=== PATIENT | male | born 1995 | race Caucasian/White ===

== ENCOUNTER 2018-09-18 22:40 | Inpatient (IN) | payer MEDICAID ==
[2018-09-19] MEDS: LIDOCAINE 1% (MPF) 30 ML INJ (00:45)
[2018-09-19] MEDS: BUPIVACAINE 0.25%/EPI (SDV) 30 ML INJ (00:45)
[2018-09-19] MEDS: SOD CHLORIDE 0.9% 1,000 ML IV ×3 (06:35→21:07)
[2018-09-19] MEDS: morphine 4 MG/ML VIAL IV ×2 (06:35→07:37)
[2018-09-19] MEDS: ONDANSETRON 4 MG INJ IV ×2 (06:35→19:45)
[2018-09-19 07:10] LABS: ADD MAN DIFF? NO
[2018-09-19 07:14] LABS: WHITE BLOOD COUNT 23.8 10^3/ul (4.8-10.8)
[2018-09-19 07:14] LABS: ABNORMAL IP MESSAGE 1; BASOPHIL # 0.1 10^3/ul (0.0-0.1); BASOPHILS % 0.3 % (0.0-2.0); HEMATOCRIT 46.4 % (42.0-52.0); LYMPHOCYTES % 8.4 % (15.0-51.0); MEAN CORPUSCULAR HEMOGLOBIN 31.7 pg (29.0-33.0); MEAN CORPUSCULAR HGB CONC 34.5 g/dl (32.0-37.0); MEAN CORPUSCULAR VOLUME 92.1 fl (82.0-101.0); MEAN PLATELET VOLUME 10.2 fl (7.4-10.4); MONOCYTE # 2.4 10^3/ul (0.3-0.9); NEUTROPHIL # 19.2 10^3/ul (1.6-7.5); NEUTROPHILS % 80.4 % (39.0-77.0); PLATELET COUNT 320 10^3/UL (140-415); POSITIVE DIFF @See below; RED BLOOD COUNT 5.04 10^6/ul (4.70-6.10); RED CELL DISTRIBUTION WIDTH 12.1 % (11.5-14.5)
[2018-09-19 07:29] LABS: ADD UMIC YES; UR ASCORBIC ACID NEGATIVE (NEGATIVE); UR BILIRUBIN (Dip) NEGATIVE (NEGATIVE); UR BLOOD (Dip) 2+ mg/dL (NEGATIVE); UR CLARITY SLIGHTLY CLOUDY (CLEAR); UR COLOR AMBER (YELLOW); UR GLUCOSE (Dip) NEGATIVE (NEGATIVE); UR KETONES (Dip) TRACE mg/dL (NEGATIVE); UR LEUKOCYTE ESTERASE (Dip) NEGATIVE Leu/ul (NEGATIVE); UR MUCUS MODERATE /HPF (NONE SEEN); UR NITRITE (Dip) NEGATIVE (NEGATIVE); UR RBC 92 /HPF (0-5); UR SPECIFIC GRAVITY (Dip) 1.028 (1.003-1.030); UR TOTAL PROTEIN (Dip) 1+ mg/dl (NEGATIVE); UR UROBILINOGEN (Dip) 2+ mg/dL (NEGATIVE); UR WBC 3 /HPF (0-5)
[2018-09-19] MEDS: PIPER-TAZO 3.375 GM IV (PMX) 100 ML IVPB ×3 (07:37→17:57)
[2018-09-19 07:42] LABS: ALANINE AMINOTRANSFERASE 40 IU/L (13-69); ALBUMIN/GLOBULIN RATIO 1.28; ALKALINE PHOSPHATASE 78 IU/L (42-121); ANION GAP 13 (5-13); ASPARTATE AMINO TRANSFERASE 29 IU/L (15-46); BILIRUBIN,INDIRECT 1.4 mg/dl (0-1.1); BILIRUBIN,TOTAL 1.4 mg/dl (0.2-1.3); BLOOD UREA NITROGEN 13 mg/dl (7-20); CALCIUM 10.2 mg/dl (8.4-10.2); CARBON DIOXIDE 28 mmol/L (21-31); CHLORIDE 102 mmol/L (97-110); CREATININE 0.69 mg/dl (0.61-1.24); Estimated GFR > 60 mL/min (>60); GLUCOSE 147 mg/dl (70-220); LIPASE 325 U/L (23-300); POTASSIUM 3.8 mmol/L (3.5-5.1); SODIUM 143 mmol/L (135-144); TOTAL PROTEIN 8.9 g/dl (6.1-8.1)
[2018-09-19] MEDS: SOD CHLORIDE 0.9% 100 ML (07:42)
[2018-09-19] MEDS: IOHEXOL 300MG/ML 150 ML BTL (07:43)
[2018-09-19] MEDS ORDERED: hydrALAzine 20 MG INJ IV (11:30)
[2018-09-19] MEDS ORDERED: NACL 0.9% 3 ML SYG IV (11:30)
[2018-09-19] MEDS ORDERED: LORAZEPAM 2 MG INJ IV (11:30)
[2018-09-19] MEDS ORDERED: ALBUTEROL/IPRATROPIUM (NEB) 3 ML AMP HHN (11:30)
[2018-09-19] MEDS ORDERED: NITROGLYCERIN (SL) 0.4 MG TAB SL (11:30)
[2018-09-19 11:56] LABS: FREE T4 (FREE THYROXINE) 0.99 ng/dl (0.79-2.35)
[2018-09-19] MEDS: morphine 2 MG INJ IV ×2 (12:47→17:19)
[2018-09-19 14:06] LABS: INR 1.13; PROTIME 14.6 Sec (11.9-14.9); PT RATIO 1.1
[2018-09-19] MEDS: ACETAMINOPHEN 325 MG TAB PO (14:49)
[2018-09-19] MEDS: HYDROCODONE/APAP (5/325) TAB PO (15:56)
[2018-09-19] MEDS: HEPARIN 5,000 UNIT/1 ML VIAL SC (20:11)
[2018-09-19] MEDS: ACETAMINOPHEN 1000MG/100ML IV 100 ML IVPB (21:19)
[2018-09-19] MEDS ORDERED: MEPERIDINE 25 MG INJ IV (23:00)
[2018-09-19] MEDS ORDERED: ONDANSETRON 4 MG INJ IV (23:00)
[2018-09-19] MEDS ORDERED: ALBUTEROL 0.083% (NEB) 2.5 MG/3 ML AMP HHN (23:00)
[2018-09-19] MEDS ORDERED: METOCLOPRAMIDE 10 MG INJ IV (23:00)
[2018-09-19] MEDS ORDERED: DIPHENHYDRAMINE 50 MG INJ IV (23:00)
[2018-09-19] MEDS ORDERED: HYDROmorphONE 1 MG/5 ML IV SYRINGE IV ×2 (23:00)
[2018-09-19] MEDS ORDERED: FENTAnyl 50 MCG/ML VIAL IV ×3 (23:00)
[2018-09-19] MEDS ORDERED: FENTAnyl 50 MCG/ML VIAL (23:11)
[2018-09-19] MEDS ORDERED: ROPIVACAINE 0.5 % 30 ML VIAL (23:11)
[2018-09-20] MEDS ORDERED: LIDOCAINE 100 MG SYRINGE (00:10)
[2018-09-20] MEDS ORDERED: FENTAnyl 50 MCG/ML VIAL (00:10)
[2018-09-20] MEDS ORDERED: SUGAMMADEX SODIUM 200 MG/2 ML VIAL IV (00:10)
[2018-09-20] MEDS ORDERED: ROCURONIUM 50 MG INJ (00:10)
[2018-09-20] MEDS ORDERED: PROPOFOL 20 ML (00:10)
[2018-09-20] MEDS ORDERED: SUCCINYLCHOLINE CHLORIDE 100 MG/5 ML SYG IV (00:10)
[2018-09-20] MEDS: HYDROmorphONE 1 MG/5 ML IV SYRINGE IV (01:19)
[2018-09-20] MEDS: ONDANSETRON 4 MG INJ IV (01:19)
[2018-09-20] MEDS: PIPER-TAZO 3.375 GM IV (PMX) 100 ML IVPB ×6 (01:22→23:52)
[2018-09-20] MEDS: SOD CHLORIDE 0.9% 1,000 ML IV ×4 (01:58→23:52)
[2018-09-20] MEDS: morphine 2 MG INJ IV ×5 (04:07→20:07)
[2018-09-20] MEDS: PANTOPRAZOLE (EC) 40 MG TAB PO (06:05)
[2018-09-20 07:07] LABS: HEMATOCRIT 41.7 % (42.0-52.0); MEAN CORPUSCULAR HEMOGLOBIN 31.9 pg (29.0-33.0); MEAN CORPUSCULAR HGB CONC 33.6 g/dl (32.0-37.0); MEAN PLATELET VOLUME 10.4 fl (7.4-10.4); PLATELET COUNT 193 10^3/UL (140-415); POSITIVE DIFF @See below; RED BLOOD COUNT 4.39 10^6/ul (4.70-6.10); RED CELL DISTRIBUTION WIDTH 12.6 % (11.5-14.5)
[2018-09-20 07:07] LABS: WHITE BLOOD COUNT 11.6 10^3/ul (4.8-10.8)
[2018-09-20 07:14] LABS: ADD MAN DIFF? YES
[2018-09-20 07:29] LABS: HEMOGLOBIN A1C 5.3 % (0-5.9)
[2018-09-20 07:33] LABS: ANION GAP 11 (5-13); BLOOD UREA NITROGEN 17 mg/dl (7-20); CALCIUM 8.8 mg/dl (8.4-10.2); CARBON DIOXIDE 29 mmol/L (21-31); CHLORIDE 101 mmol/L (97-110); CHOL/HDL RATIO 2.6 RATIO; CHOLESTEROL 112 mg/dl (100-200); CREATININE 0.81 mg/dl (0.61-1.24); Estimated GFR > 60 mL/min (>60); GLUCOSE 138 mg/dl (70-220); HDL CHOLESTEROL 43 mg/dl (30-63); LDL CHOLESTEROL,CALCULATED 60 mg/dl; MAGNESIUM 2.1 mg/dl (1.7-2.5); PHOSPHORUS 3.4 mg/dl (2.5-4.9); POTASSIUM 4.1 mmol/L (3.5-5.1); SODIUM 141 mmol/L (135-144); TRIGLYCERIDES 45 mg/dl (0-149)
[2018-09-20 07:41] LABS: ALANINE AMINOTRANSFERASE 32 IU/L (13-69); ALBUMIN 3.5 g/dl (3.3-4.9); ALKALINE PHOSPHATASE 45 IU/L (42-121); ANION GAP 7 (5-13); ASPARTATE AMINO TRANSFERASE 27 IU/L (15-46); BILIRUBIN,INDIRECT 1.7 mg/dl (0-1.1); BILIRUBIN,TOTAL 1.7 mg/dl (0.2-1.3); BLOOD UREA NITROGEN 17 mg/dl (7-20); CARBON DIOXIDE 30 mmol/L (21-31); CHLORIDE 104 mmol/L (97-110); Estimated GFR > 60 mL/min (>60); GLUCOSE 141 mg/dl (70-220); POTASSIUM 4.3 mmol/L (3.5-5.1); SODIUM 141 mmol/L (135-144); TOTAL PROTEIN 6.4 g/dl (6.1-8.1)
[2018-09-20 07:59] LABS: THYROID STIMULATING HORMONE 0.348 MIU/L (0.465-4.680)
[2018-09-20] MEDS: HEPARIN 5,000 UNIT/1 ML VIAL SC ×2 (08:03→20:13)
[2018-09-20 08:06] LABS: BAND NEUTROPHILS #M 4.1 10^3/ul (0.0-0.6); BAND NEUTROPHILS % (M) 36 % (0-4); LYMPHOCYTES #M 0.4 10^3/ul (0.8-2.9); LYMPHOCYTES % (M) 4 % (15-51); MONOCYTE #M 0.5 10^3/ul (0.3-0.9); MONOCYTES % (M) 5 % (0-11); PLATELET ESTIMATE NORMAL; POIKILOCYTOSIS 1+ (0-0); POLYCHROMASIA 1+ (0-0); REACTIVE LYMPHOCYTES #M 0.3 10^3/ul (0.0-0.0); REACTIVE LYMPHOCYTES% (M) 3 % (0-0); SEG NEUT #M 6.5 10^3/ul (1.6-7.5); SEGMENTED NEUTROPHILS (M) % 52 % (39-77); SMUDGE%M 1 % (0-0)
[2018-09-20] MEDS: HYDROCODONE/APAP (5/325) TAB PO ×2 (09:26→18:03)
[2018-09-21] MEDS: morphine 2 MG INJ IV ×3 (00:08→08:01)
[2018-09-21] MEDS: HYDROCODONE/APAP (5/325) TAB PO (03:00)
[2018-09-21] MEDS: PIPER-TAZO 3.375 GM IV (PMX) 100 ML IVPB ×3 (05:25→17:39)
[2018-09-21] MEDS: PANTOPRAZOLE (EC) 40 MG TAB PO (05:25)
[2018-09-21 06:01] LABS: ADD MAN DIFF? NO
[2018-09-21 06:05] LABS: BASOPHILS % 0.2 % (0.0-2.0); HEMATOCRIT 39.1 % (42.0-52.0); HEMOGLOBIN 13.1 g/dl (14.0-18.0); LYMPHOCYTES # 1.4 10^3/ul (0.8-2.9); LYMPHOCYTES % 11.4 % (15.0-51.0); MEAN CORPUSCULAR HEMOGLOBIN 31.6 pg (29.0-33.0); MEAN CORPUSCULAR HGB CONC 33.5 g/dl (32.0-37.0); MEAN CORPUSCULAR VOLUME 94.4 fl (82.0-101.0); MEAN PLATELET VOLUME 10.1 fl (7.4-10.4); MONOCYTE # 0.9 10^3/ul (0.3-0.9); MONOCYTES % 7.5 % (0.0-11.0); NEUTROPHIL # 9.6 10^3/ul (1.6-7.5); NEUTROPHILS % 80.5 % (39.0-77.0); PLATELET COUNT 208 10^3/UL (140-415); RED BLOOD COUNT 4.14 10^6/ul (4.70-6.10); RED CELL DISTRIBUTION WIDTH 12.3 % (11.5-14.5)
[2018-09-21 06:32] LABS: ANION GAP 4 (5-13); BLOOD UREA NITROGEN 15 mg/dl (7-20); CALCIUM 8.8 mg/dl (8.4-10.2); CARBON DIOXIDE 29 mmol/L (21-31); CHLORIDE 105 mmol/L (97-110); CREATININE 0.66 mg/dl (0.61-1.24); Estimated GFR > 60 mL/min (>60); GLUCOSE 115 mg/dl (70-220); POTASSIUM 3.7 mmol/L (3.5-5.1); SODIUM 138 mmol/L (135-144)
[2018-09-21] MEDS: ONDANSETRON 4 MG INJ IV (07:56)
[2018-09-21] MEDS: HEPARIN 5,000 UNIT/1 ML VIAL SC ×2 (09:19→20:43)
[2018-09-21] MEDS: MAGNESIUM HYDROXIDE 30ML CUP PO (09:22)
[2018-09-21] MEDS: morphine 4 MG/ML VIAL IV ×4 (11:37→20:43)
[2018-09-21] MEDS: SOD CHLORIDE 0.9% 1,000 ML IV ×2 (11:37→22:50)
[2018-09-21] MEDS: DOCUSATE SODIUM 100 MG CAP PO (17:37)
[2018-09-21] MEDS: ACETAMINOPHEN 325 MG TAB PO (22:58)
[2018-09-22] MEDS: PIPER-TAZO 3.375 GM IV (PMX) 100 ML IVPB ×4 (00:04→18:14)
[2018-09-22] MEDS: morphine 4 MG/ML VIAL IV ×7 (00:04→22:12)
[2018-09-22] MEDS: MAGNESIUM HYDROXIDE 30ML CUP PO (05:33)
[2018-09-22 05:52] LABS: ADD MAN DIFF? NO
[2018-09-22 05:58] LABS: WHITE BLOOD COUNT 11.8 10^3/ul (4.8-10.8)
[2018-09-22 05:58] LABS: BASOPHILS % 0.3 % (0.0-2.0); EOSINOPHILS % 0.3 % (0.0-7.0); HEMATOCRIT 37.5 % (42.0-52.0); HEMOGLOBIN 12.8 g/dl (14.0-18.0); LYMPHOCYTES # 2.1 10^3/ul (0.8-2.9); MEAN CORPUSCULAR HEMOGLOBIN 31.8 pg (29.0-33.0); MEAN CORPUSCULAR HGB CONC 34.1 g/dl (32.0-37.0); MEAN CORPUSCULAR VOLUME 93.3 fl (82.0-101.0); MEAN PLATELET VOLUME 9.9 fl (7.4-10.4); MONOCYTE # 1.1 10^3/ul (0.3-0.9); NEUTROPHIL # 8.5 10^3/ul (1.6-7.5); NEUTROPHILS % 71.9 % (39.0-77.0); PLATELET COUNT 250 10^3/UL (140-415); RED BLOOD COUNT 4.02 10^6/ul (4.70-6.10); RED CELL DISTRIBUTION WIDTH 11.8 % (11.5-14.5)
[2018-09-22] MEDS: PANTOPRAZOLE (EC) 40 MG TAB PO (06:11)
[2018-09-22 06:43] LABS: ANION GAP 7 (5-13); BLOOD UREA NITROGEN 12 mg/dl (7-20); CALCIUM 8.5 mg/dl (8.4-10.2); CARBON DIOXIDE 29 mmol/L (21-31); CHLORIDE 101 mmol/L (97-110); CREATININE 0.67 mg/dl (0.61-1.24); Estimated GFR > 60 mL/min (>60); GLUCOSE 110 mg/dl (70-220); POTASSIUM 3.8 mmol/L (3.5-5.1); SODIUM 137 mmol/L (135-144)
[2018-09-22] MEDS: HEPARIN 5,000 UNIT/1 ML VIAL SC ×2 (08:43→20:34)
[2018-09-22] MEDS: SOD CHLORIDE 0.9% 1,000 ML IV ×2 (08:45→19:07)
[2018-09-23] MEDS: SOD CHLORIDE 0.9% 1,000 ML IV ×2 (00:24→11:49)
[2018-09-23] MEDS: PIPER-TAZO 3.375 GM IV (PMX) 100 ML IVPB ×4 (00:25→17:14)
[2018-09-23] MEDS: morphine 4 MG/ML VIAL IV ×2 (03:43→08:20)
[2018-09-23] MEDS: PANTOPRAZOLE (EC) 40 MG TAB PO (05:45)
[2018-09-23 06:57] LABS: ADD MAN DIFF? NO
[2018-09-23 07:05] LABS: BASOPHIL # 0.1 10^3/ul (0.0-0.1); BASOPHILS % 0.5 % (0.0-2.0); EOSINOPHILS # 0.1 10^3/ul (0.0-0.5); EOSINOPHILS % 1.4 % (0.0-7.0); HEMATOCRIT 37.7 % (42.0-52.0); HEMOGLOBIN 12.7 g/dl (14.0-18.0); LYMPHOCYTES % 20.3 % (15.0-51.0); MEAN CORPUSCULAR HEMOGLOBIN 31.4 pg (29.0-33.0); MEAN CORPUSCULAR HGB CONC 33.7 g/dl (32.0-37.0); MEAN CORPUSCULAR VOLUME 93.1 fl (82.0-101.0); MEAN PLATELET VOLUME 9.8 fl (7.4-10.4); MONOCYTE # 1.1 10^3/ul (0.3-0.9); MONOCYTES % 10.4 % (0.0-11.0); NEUTROPHIL # 6.7 10^3/ul (1.6-7.5); NEUTROPHILS % 66.5 % (39.0-77.0); PLATELET COUNT 269 10^3/UL (140-415); RED BLOOD COUNT 4.05 10^6/ul (4.70-6.10); RED CELL DISTRIBUTION WIDTH 11.6 % (11.5-14.5)
[2018-09-23 07:05] LABS: WHITE BLOOD COUNT 10.1 10^3/ul (4.8-10.8)
[2018-09-23 07:32] LABS: ANION GAP 8 (5-13); BLOOD UREA NITROGEN 8 mg/dl (7-20); CALCIUM 8.5 mg/dl (8.4-10.2); CARBON DIOXIDE 30 mmol/L (21-31); CHLORIDE 100 mmol/L (97-110); CREATININE 0.64 mg/dl (0.61-1.24); Estimated GFR > 60 mL/min (>60); GLUCOSE 99 mg/dl (70-220); POTASSIUM 3.4 mmol/L (3.5-5.1); SODIUM 138 mmol/L (135-144)
[2018-09-23] MEDS: HEPARIN 5,000 UNIT/1 ML VIAL SC (08:20)
== END 2018-09-23 18:19 | disposition home or self-care (01) | DRG 340 ==
LOC: FTE 22:40 → PP2 09-19 07:10
PROC: 0DTJ4ZZ Resection of Appendix, Percutaneous Endoscopic Approach (ICD-10-PCS; principal; 2018-09-19 00:24)
DX: K35.32 Acute appendicitis with perforation, localized peritonitis, and gangrene, without abscess (principal); K38.1 Appendicular concretions
CPT/HCPCS: 36415; 74177; 80048; 80053; 80061; 81001; 83036; 83690; 83735; 84100; 84439; 84443; 85025; 85610; 85730; 88304; 96374; 96375; 99285-25